=== PATIENT | male | born 1965 | race African-American/Black ===

== ENCOUNTER 2019-11-20 23:25 | Emergency (ER) | payer MEDICARE ==
[~2019-11-20] VITALS: Ht 180.3 cm; Wt 109.1 kg
[2019-11-20] MEDS ORDERED: blood thinner PO (23:52)
[2019-11-20] MEDS ORDERED: LEVE500T8 PO (23:52)
[2019-11-20] MEDS ORDERED: FINA-27 PO (23:52)
[2019-11-20] MEDS ORDERED: FURO40 PO (23:52)
[2019-11-21 01:15] VITALS: BP 129/88
== END 2019-11-21 01:30 | disposition home or self-care (01) ==
LOC: EMS 23:27
DX: I11.0 Hypertensive heart disease with heart failure (principal); I50.9 Heart failure, unspecified; I25.2 Old myocardial infarction; Z59.0 Homelessness; Z79.899 Other long term (current) drug therapy; Z86.73 Personal history of transient ischemic attack (TIA), and cerebral infarction without residual deficits